=== PATIENT | male | born 1980 | race Caucasian/White ===

== ENCOUNTER 2016-12-15 15:53 | Emergency (ER) | payer MEDICAID, OTHER ==
[2016-12-15] MEDS ORDERED: DIPHTH,PERTUSS(ACELL),TET VAC 0.5 ML VIAL IM ONE ×2 (16:18→17:14)
--- OUTSIDE RECORDS SUMMARY | 2016-12-15 16:32 | XMS REPORT | Continuity of Care Document ---
:1980 Author Organization [facility] ([facility]) Address [place] [address] Phone [phone] Care Team Providers Name Role Phone Brian Kirby Primary Care Provider [phone] Source Comments This disclosure is being made pursuant to the Care Everywhere program, applicable federal and state laws, and may not contain all informaitonavailable regarding this patient.[facility] ([facility]) Active Allergies and Adverse Reactions No Known Allergies Current Medications Prescription Sig. Disp. Refills Start Date End Date Status meloxicam 15 mg tablet Take 1 Tab by mouth 30 Tab 0 03/25/2013 Active daily. Indications: pain and inflammation triamcinolone 0.1 % apply topically 2 30 g 0 02/10/2014 Active cream times daily. Apply a thin layer to affected area. Indications: Dyshidrotic eczema Active Problems Problem Noted Date Elevated blood pressure reading without diagnosis of hypertension 04/25/2012 Stress reaction 04/25/2012 Dermatitis 03/11/2012 Chest pain 03/11/2012 Health education/counseling 03/11/2012 Social History Tobacco Use Types Packs/Day Years Used Date Former Smoker Cigarettes 0.5 5 Quit: 07/22/2007 Smokeless Tobacco: Never Used Alcohol Use Drinks/Week oz/Week Comments No Last Filed Vital Signs Vital Sign Reading Time Taken Blood Pressure 155/85 03/25/2013 6:39 PM CDT Pulse 97 03/25/2013 6:39 PM CDT Temperature 35.5 C (95.9 F) 03/25/2013 6:39 PM CDT Respiratory Rate 16 03/25/2013 6:39 PM CDT Height 1.905 m (6' 3") 03/11/2012 10:12 AM CDT Weight 78.109 kg (172 lb 3.2 oz) 04/25/2012 10:14 AM CDT Body Mass Index 21.52 04/25/2012 10:14 AM CDT Oxygen Saturation 100% 03/25/2013 6:39 PM CDT Plan of Care Health Maintenance Due Date Last Done Comments Hepatitis B Vaccine (1 of 3 - Primary Series) 1980 Tdap Vaccine 1989 MMR Vaccine 1996 Td Vaccine 1996 Influenza Vaccine: Seasonal (#1) 02/20/2016 Lipid Disorder Screening 03/11/2017 03/11/2012 Results from Last 3 Months Not on file
--- NOTE | 2016-12-15 17:03 | ERNOTE ---
Medical Problem HPI - Narrative Date of Service: 12/15/16 - General Chief Complaint: Laceration Time Seen by Provider: 12/15/16 16:11 Source: patient Exam Limitations: no limitations - Immun/Allergies/Home Medications Allergies/Adverse Reactions: Allergies No Known Allergies Allergy (Verified 12/15/16 16:01) Home Medications: HOME MEDICATIONS Cephalexin Monohydrate [Keflex] 500 mg PO QID #40 cap 12/15/16 [Last Taken Unknown] - History of Present History Narrative: cut on metal spike Timing: constant Review of Systems - Review of Systems Constitutional: Present: no symptoms reported EYE: Present: no symptoms reported ENT: Present: no symptoms reported Respiratory: Present: no symptoms reported Cardiology: Present: no symptoms reported Gastrointestinal/Abdominal: Present: no symptoms reported Genitourinary: Present: no symptoms reported Musculoskeletal: Present: no symptoms reported, other - 3 inch laceration to anterior schaffer Skin: Present: other - laceration to right anterior schaffer Neurological: Present: no symptoms reported Endocrine: Present: no symptoms reported Hematologic/Lymphatic: Present: no symptoms reported Psych: Present: no symptoms reported - Patient's Past Medical History Patient History - Medical: No pertinent hx Patient History - Cardiac/Respiratory: No pertinent hx Patient History - Cancer: No Hx of Cancer Patient History - Surgical Procedures: No surgical history Patient History - Other: None - Family History Family History:: no untoward family reactions to anesthesia, no familial bleeding tendencies, no family history of clotting disorders, no family history of premature - Social History Living Situations: home Psych History: No pertinent hx Physical Exam - Physical Exam General Appearance: Present: alert, no apparent distress Eye Exam: Normal inspection: bilateral, PERRL: bilateral, EOMI: bilateral Ears, Nose, Throat: Present: normal ENT inspection Neck: Present: normal inspection, nontender Respiratory: Present: no respiratory distress, normal breath sounds, no accessory muscle use, chest nontender, lungs clear Cardiovascular/Chest: Present: regular rate, rhythm, no murmur, normal peripheral pulses Peripheral Pulses: N=norm/S=strong/W=weak/B=bound/A=absent: Carotid (R): Normal , Carotid (L): Normal, Radial (R): Normal, Radial (L): Normal, Femoral (R): Normal, Femoral (L): Normal, Dorsalis-pedis (R): Normal, Dorsalis-pedis (L): Normal Gastrointestinal/Abdominal: Present: normal bowel sounds, nontender, nondistended, soft, no organomegaly Back Exam: Present: normal inspection, normal range of motion, no CVA tenderness , no vertebral tenderness Extremity Exam: Present: normal inspection, non-tender, normal range of motion, no edema Neurological Exam: Present: alert, oriented, normal mood/affect, no motor/ sensory deficits DTR: N=norm/NB=norm/brisk/A=abs/DD=dull/dimin/HC=hyperactive: Bicep (R): Normal , Bicep (L): Normal, Tricep (R): Normal, Tricep (L): Normal, Knee (R): Normal, Knee (L): Normal, Ankle (R): Normal, Ankle (L): Normal Skin Exam: Present: normal color, warm/dry, other - 3.5 cm laceration to antior right schaffer Lymphatic Exam: Present: no adenopathy ED Progress - Vital Signs Patient's Vital Signs:: I have reviewed the patient's vital signs. Vital Signs: Vital Signs 12/15/16 15:54 Temperature 36.5 C Pulse Rate 93 Respiratory 12 Rate Blood Pressure 148/79 O2 Sat by Pulse 100 Oximetry - Progress/Reassessment Chief Complaint: Laceration Progress:: Improved Procedures wound cleansed with betadine infiltrated with 5 cc 1% lidocaine wound sutured with 5 3-0 interrupted sutures, patient tolerated well Anesthesia: 1% Lidocaine I & D Prep: betadine prep Wound's Depth/Shape: superficial, linear Wound Explored: clean, to base Wound Intervention: irrigated w/saline Distal NVT: neuro/vasc intact, no tendon injury Suture Size/Type: 3-0, nylon Layer Closure: Simple Wound Dressing: sterile dressing applied Complications: Pt genaro procedure well Departure - Departure Clinical Impression: Laceration Condition: Good Instructions: How to Change Your Dressing, [id number] Prescriptions: Cephalexin Monohydrate [Keflex] 500 mg PO QID #40 cap
[2016-12-15 17:21] VITALS: BP 120/64
== END 2016-12-15 17:20 | disposition home or self-care (01) ==
LOC: ER 15:53
PROC: 0HQKXZZ Repair Right Lower Leg Skin, External Approach (ICD-10-PCS; principal; 2016-12-15)
DX: S81.811A Laceration without foreign body, right lower leg, initial encounter (principal); W45.8XXA Other foreign body or object entering through skin, initial encounter; Y93.9 Activity, unspecified; Y92.9 Unspecified place or not applicable; Z23 Encounter for immunization